=== PATIENT | female | born 1950 | race Caucasian/White ===

== ENCOUNTER 2020-01-03 11:09 | Day surgery (SDC) | payer MEDICARE, SELFPAY ==
[2019-12-28 10:31] VITALS: BMI 28.3
--- NOTE | 2019-12-31 09:43 | HO.ANESPROP2 ---
Documented by User: Saba Redd 12/31/19 09:44 HPI - Anesthesia Eval Consult details Narrative: 69yo F for Colonoscopy PMFSH Past Medical History Medical History Diabetes Elevated cholesterol Hx of spinal stenosis PVD (peripheral vascular disease) Sleep apnea Thyroid disease Surgical History Surgical History H/O colonoscopy Hx of elbow surgery Social History Social History Smoking Status: Current every day smoker Smoked in Last 30 Days: Yes Advance Directives Information Provided: No Meds Allergies Allergy/AdvReac Type Severity Reaction Status Date / Time adhesive tape Allergy Intermediate BLISTERS Verified 01/03/20 06:16 latex [LATEX] Allergy Intermediate REDNESS Verified 01/03/20 06:16 Sulfa (Sulfonamide Allergy Intermediate HIVES Verified 01/03/20 06:16 Antibiotics) [SULFA (SULFONAMIDE ANTIBIOTICS)] amoxicillin [Augmentin] Allergy Unknown Unknown Verified 01/03/20 06:16 clavulanic acid [Augmentin] Allergy Unknown Unknown Verified 01/03/20 06:16 ENVIROMENTAL Allergy Intermediate HAYFEVER Uncoded 11/18/19 16:25 bees Allergy Unknown Unknown Uncoded 12/28/19 10:38 ceclor Allergy Unknown Unknown Uncoded 12/28/19 10:38 Home Medications Medication Instructions Recorded Confirmed Type aspirin [Aspirin Low Dose] 81 mg PO 5XW 12/28/19 01/03/20 History levocetirizine 5 mg PO QPM 12/28/19 12/28/19 History levothyroxine 50 mcg PO 5XW 12/28/19 12/28/19 History levothyroxine 100 mcg PO 2XW 12/28/19 12/28/19 History metformin 1,000 mg PO BID 12/28/19 12/28/19 History multivitamin 1 tab PO DAILY 12/28/19 12/28/19 History omega-3 fatty acids [Fish Oil 1,000 mg PO DAILY 12/28/19 01/03/20 History Concentrate] rosuvastatin 5 mg PO 2XW 12/28/19 12/28/19 History Exam Exam Date and Time: December 31, 2019 0943 Height,Weight and Vital Signs: Height 5 ft 5 in Weight 77.111 kg Assessment and Plan Assessment Anesthesia Assessment: Chart Reviewed Documented by User: Bre Mike 01/03/20 12:18 PMFSH Past Medical History Medical History Diabetes Elevated cholesterol Hx of spinal stenosis PVD (peripheral vascular disease) Sleep apnea Thyroid disease Family History Family history of problems with anesthesia: No Surgical History Surgical History H/O colonoscopy Hx of elbow surgery History of Problems with Anesthesia: No Social History Social History Smoking Status: Current every day smoker Smoked in Last 30 Days: Yes Advance Directives Information Provided: No Meds Allergies Allergy/AdvReac Type Severity Reaction Status Date / Time adhesive tape Allergy Intermediate BLISTERS Verified 01/03/20 06:16 latex [LATEX] Allergy Intermediate REDNESS Verified 01/03/20 06:16 Sulfa (Sulfonamide Allergy Intermediate HIVES Verified 01/03/20 06:16 Antibiotics) [SULFA (SULFONAMIDE ANTIBIOTICS)] amoxicillin [Augmentin] Allergy Unknown Unknown Verified 01/03/20 06:16 clavulanic acid [Augmentin] Allergy Unknown Unknown Verified 01/03/20 06:16 ENVIROMENTAL Allergy Intermediate HAYFEVER Uncoded 11/18/19 16:25 bees Allergy Unknown Unknown Uncoded 12/28/19 10:38 ceclor Allergy Unknown Unknown Uncoded 12/28/19 10:38 Home Medications Medication Instructions Recorded Confirmed Type aspirin [Aspirin Low Dose] 81 mg PO 5XW 12/28/19 01/03/20 History levocetirizine 5 mg PO QPM 12/28/19 12/28/19 History levothyroxine 50 mcg PO 5XW 12/28/19 12/28/19 History levothyroxine 100 mcg PO 2XW 12/28/19 12/28/19 History metformin 1,000 mg PO BID 12/28/19 12/28/19 History multivitamin 1 tab PO DAILY 12/28/19 12/28/19 History omega-3 fatty acids [Fish Oil 1,000 mg PO DAILY 12/28/19 01/03/20 History Concentrate] rosuvastatin 5 mg PO 2XW 12/28/19 12/28/19 History Exam Height,Weight and Vital Signs: Vital Signs Temp Pulse Resp BP Pulse Ox 01/03/20 11:36 98.5 F 98 18 129/70 96 Lab Results 01/03/20 Range/Units 11:31 POC Glucose 149 H (60-115) mg/dL Airway Mallampati Class: II TM Dist: >3cm Neck ROM: Full Heart: RRR Lungs: CTAB Assessment and Plan Assessment Anesthesia Assessment: Anesthesia Plan Discussed and Chart Reviewed Final Anesthetic Review NPO: Yes ASA Class: III Final Preanesthetic Review: No Changes in Pt Med Stat, Meds/Allgs Chart Reviewed and Consent Obtained/Reviewed Patient Risk: Intermediate Procedure Risk: Low Anesthetic Plan Anesthetic Plan: MAC: Disposition: Standard PACU
[2020-01-03 11:36] VITALS: BP 129/70; PULSE 98; RESP 18; TEMP 36.9; O2SAT 96
[2020-01-03 11:41] LABS: Glucose, Whole Blood 149 mg/dL (60-115)
[2020-01-03] MEDS: Lactated Ringers 1,000 ML 100 ML IVCONT (11:55)
[2020-01-03 12:47] VITALS: BP 105/59; PULSE 95; RESP 18; TEMP 35.9; O2SAT 97
--- NOTE | 2020-01-03 12:55 | PM.OP ---
Brief Operative Note Date of procedure: 01/03/20 Pre-op diagnosis: Screening Post-op diagnosis: other (Colon polyp, Diverticulosis) Procedure: Colonoscopy to cecum and TI with snare polypectomy and placement of 1 Resolution clip Surgeon: Arnie Bach Anesthesia: MAC Estimated blood loss (mL): 0 Pathology: other (A. Rectal polyp) Condition: stable Disposition: PACU
[2020-01-03 13:03] VITALS: BP 112/62; PULSE 82; RESP 18; O2SAT 98
[2020-01-03 13:18] VITALS: BP 118/64; PULSE 74; RESP 14; TEMP 36.4; O2SAT 99
--- NOTE | 2020-01-03 13:44 | OP_ITS ---
SURGEON: Arnie Bach MD INDICATIONS: Full consent has been obtained from her for this, including risks of bleeding and perforation. PREOPERATIVE DIAGNOSIS: POSTOPERATIVE DIAGNOSIS: PROCEDURE PERFORMED: Colonoscopy to cecum and terminal ileum with snare polypectomy, and placement of 1 resolution clip. ESTIMATED BLOOD LOSS: COMPLICATIONS: ANESTHESIA: Monitored anesthesia care. ASSISTANTS: SPECIMENS: PREOPERATIVE DIAGNOSES: Colorectal cancer screening and personal history of tubular adenoma of the colon. POSTOPERATIVE DIAGNOSES: Colorectal cancer screening and personal history of tubular adenoma of the colon, colon polyp, diverticulosis and internal hemorrhoids. DESCRIPTION OF PROCEDURE: The patient was placed in the left lateral decubitus position. The digital rectal exam revealed no abnormalities. The Olympus video pediatric colonoscope was entered into the rectum and advanced easily to the cecum. Once in the cecum, I did identify normal-appearing cecal pouch with appendiceal orifice and a normal-appearing ileocecal valve. The terminal ileum was cannulated and appeared normal. The scope was withdrawn back in the colon. The entire cecum and ileocecal valve appeared normal. The scope was then slowly withdrawn assessing all mucosal surfaces carefully. Preparation was excellent. There was a mild amount of sigmoid diverticulosis. I did not visualize any sign of colitis nor angiodysplasia. In the rectum, scope was retroflexed visualizing internal hemorrhoids, but no other pathology. The rectal mucosa appeared normal. The scope was straightened. In the forward viewing position, in the mid to proximal rectum, was an approximately 6 mm grossly adenomatous polyp, which was snared and recovered by suction. The polypectomy site appeared clean, without any sign of residual polyp nor bleeding. I did place a single resolution clip on the polypectomy site due to the fact that she has to go back on her aspirin. There was good deployment of the clip and good hemostasis. The scope was withdrawn from the patient. She tolerated the procedure well and was returned to the recovery area in stable condition. IMPRESSION: 1. Rectal polyp, status post snare polypectomy. 2. Diverticulosis. 3. Internal hemorrhoids. PLAN: The results of the pathology will be checked. I would recommend a repeat colonoscopy in 5 years for further screening. She was advised that she could resume her aspirin by tomorrow. MD DEVORAH Lindo/MARCO / [id number]
--- NOTE | 2020-01-03 14:11 | HO.POSTANES ---
Post Anesthesia Evaluation Post Anesthesia Evaluation Vital Signs: Vital Signs Temp Pulse Resp BP Pulse Ox 01/03/20 13:18 97.5 F 74 14 118/64 99 01/03/20 13:03 82 18 112/62 98 01/03/20 12:47 96.7 F L 95 18 105/59 L 97 01/03/20 11:36 98.5 F 98 18 129/70 96 Anesthesia: Monitored Mental Status: Awake Pain Control: Satisfactory Nausea/Vomiting: None Hydration: Adequate Anesthesia-Related Issues: No Anes. Related Issues
== END 2020-01-03 23:59 | disposition home or self-care (01) ==
PROVIDERS: Internal Medicine; PCP Pediatrics; Visit Provider Internal Medicine Gastroenterology
PROC: 0DJD8ZZ Inspection of Lower Intestinal Tract, Via Natural or Artificial Opening Endoscopic (ICD-10-PCS; CPT 45378; principal; 2020-01-03 12:00)
DX: Z12.11 Encounter for screening for malignant neoplasm of colon (principal); Z86.010 Personal history of colon polyps; D12.8 Benign neoplasm of rectum; K57.30 Diverticulosis of large intestine without perforation or abscess without bleeding; K64.8 Other hemorrhoids; E11.9 Type 2 diabetes mellitus without complications; G47.33 Obstructive sleep apnea (adult) (pediatric); Z99.89 Dependence on other enabling machines and devices; Z79.84 Long term (current) use of oral hypoglycemic drugs; Z79.82 Long term (current) use of aspirin; F17.210 Nicotine dependence, cigarettes, uncomplicated; Z88.2 Allergy status to sulfonamides; Z88.8 Allergy status to other drugs, medicaments and biological substances; Z91.040 Latex allergy status
CPT/HCPCS: 45385; 82947; 88305

== ENCOUNTER 2022-10-21 11:36 | Day surgery (SDC) | payer MEDICARE, SELFPAY ==
--- NOTE | 2022-10-17 12:01 | P.CONAN_ITS ---
Documented by User: Saba Redd NP 10/17/22 12:04 HPI - Anesthesia Eval Consult details Narrative: 72yo F for Upper Endoscopy PMFSH Past Medical History Medical History Adenocarcinoma, lung Diabetes Elevated cholesterol History of kidney stones Hx of skin cancer, basal cell Hx of spinal stenosis PVD (peripheral vascular disease) Sleep apnea Smoker Thyroid disease Family History Family history of problems with anesthesia: No Surgical History Surgical History H/O colonoscopy Hx of bilateral cataract extraction Hx of elbow surgery History of Problems with Anesthesia: No Social History Social History Patient Tobacco Use Status: Current everyday Tobacco user Tobacco use type: Cigarette Cigarettes Per Day: 15 Use of substances other than those prescribed or required for medical reasons: No Are you DNR?: No Advance Directives: No Advance Directives Information Provided: Yes Meds Allergies Allergy/AdvReac Type Severity Reaction Status Date / Time adhesive tape Allergy Intermediate BLISTERS Verified 01/03/20 06:16 latex [LATEX] Allergy Intermediate REDNESS Verified 01/03/20 06:16 Sulfa (Sulfonamide Allergy Intermediate HIVES Verified 01/03/20 06:16 Antibiotics) [SULFA (SULFONAMIDE ANTIBIOTICS)] amoxicillin [Augmentin] Allergy Unknown Unknown Verified 01/03/20 06:16 clavulanic acid [Augmentin] Allergy Unknown Unknown Verified 01/03/20 06:16 ENVIROMENTAL Allergy Intermediate HAYFEVER Uncoded 11/18/19 16:25 bees Allergy Unknown Unknown Uncoded 12/28/19 10:38 ceclor Allergy Unknown Unknown Uncoded 12/28/19 10:38 Home Medications Medication Instructions Recorded Confirmed Last Taken Type aspirin 81 mg tablet,delayed 81 mg PO 5XW 12/28/19 01/03/20 10/14/22 History release (Brittany Low Dose Aspirin) levocetirizine 5 mg tablet 5 mg PO QPM 12/28/19 12/28/19 Unknown History levothyroxine 50 mcg tablet 50 mcg PO 5XW 12/28/19 12/28/19 Unknown History levothyroxine 50 mcg tablet 100 mcg PO 2XW 12/28/19 12/28/19 Unknown History metformin 500 mg tablet 1,000 mg PO BID 12/28/19 12/28/19 Unknown History omega-3 fatty acids 1,000 mg 1,000 mg PO DAILY 12/28/19 01/03/20 10/14/22 History capsule (Fish Oil Concentrate) rosuvastatin 5 mg tablet 5 mg PO 2XW 12/28/19 12/28/19 Unknown History omeprazole 20 mg capsule,delayed 20 mg PO DAILY 10/18/22 10/18/22 Unknown History release cyanocobalamin (vitamin B-12) 500 500 mcg PO DAILY 10/21/22 10/21/22 Unknown History mcg tablet (Vitamin B-12) Exam Exam Date and Time: October 17, 2022 1201 Assessment and Plan Assessment Anesthesia Assessment: Chart Reviewed Final Anesthetic Review Family History of Problems with Anesthesia: No History of Problems with Anesthesia: No Documented by User: Laly Banda MD 10/21/22 13:07 [facility] Past Medical History Medical History Adenocarcinoma, lung Diabetes Elevated cholesterol History of kidney stones Hx of skin cancer, basal cell Hx of spinal stenosis PVD (peripheral vascular disease) Sleep apnea Smoker Thyroid disease Surgical History Surgical History H/O colonoscopy Hx of bilateral cataract extraction Hx of elbow surgery Social History Social History Patient Tobacco Use Status: Current everyday Tobacco user Tobacco use type: Cigarette Cigarettes Per Day: 15 Use of substances other than those prescribed or required for medical reasons: No Are you DNR?: No Advance Directives: No Advance Directives Information Provided: Yes Meds Allergies Allergy/AdvReac Type Severity Reaction Status Date / Time adhesive tape Allergy Intermediate BLISTERS Verified 01/03/20 06:16 latex [LATEX] Allergy Intermediate REDNESS Verified 01/03/20 06:16 Sulfa (Sulfonamide Allergy Intermediate HIVES Verified 01/03/20 06:16 Antibiotics) [SULFA (SULFONAMIDE ANTIBIOTICS)] amoxicillin [Augmentin] Allergy Unknown Unknown Verified 01/03/20 06:16 clavulanic acid [Augmentin] Allergy Unknown Unknown Verified 01/03/20 06:16 ENVIROMENTAL Allergy Intermediate HAYFEVER Uncoded 11/18/19 16:25 bees Allergy Unknown Unknown Uncoded 12/28/19 10:38 ceclor Allergy Unknown Unknown Uncoded 12/28/19 10:38 Home Medications Medication Instructions Recorded Confirmed Last Taken Type aspirin 81 mg tablet,delayed 81 mg PO 5XW 12/28/19 01/03/20 10/14/22 History release (Brittany Low Dose Aspirin) levocetirizine 5 mg tablet 5 mg PO QPM 12/28/19 12/28/19 Unknown History levothyroxine 50 mcg tablet 50 mcg PO 5XW 12/28/19 12/28/19 Unknown History levothyroxine 50 mcg tablet 100 mcg PO 2XW 12/28/19 12/28/19 Unknown History metformin 500 mg tablet 1,000 mg PO BID 12/28/19 12/28/19 Unknown History omega-3 fatty acids 1,000 mg 1,000 mg PO DAILY 12/28/19 01/03/20 10/14/22 History capsule (Fish Oil Concentrate) rosuvastatin 5 mg tablet 5 mg PO 2XW 12/28/19 12/28/19 Unknown History omeprazole 20 mg capsule,delayed 20 mg PO DAILY 10/18/22 10/18/22 Unknown History release cyanocobalamin (vitamin B-12) 500 500 mcg PO DAILY 10/21/22 10/21/22 Unknown History mcg tablet (Vitamin B-12) Exam Airway Mallampati Class: III TM Dist: >3cm Neck ROM: Full Loose/Missing/Broken Teeth: No Heart: RRR Lungs: CTA Assessment and Plan Assessment Anesthesia Assessment: Anesthesia Plan Discussed Final Anesthetic Review NPO: Yes ASA Class: II Final Preanesthetic Review: Meds/Allgs Chart Reviewed, Consent Obtained/Reviewed and Anes Risks/Benef Reviewed Patient Risk: Low Procedure Risk: Intermediate Anesthetic Plan Anesthetic Plan: MAC: Disposition: Standard PACU
[2022-10-21 12:32] VITALS: BMI 27.0
[2022-10-21 12:54] VITALS: BP 131/70; PULSE 84; RESP 16; TEMP 36.1; O2SAT 95
[2022-10-21] MEDS: Lactated Ringers 1,000 ML 100 ML IVCONT (12:56)
[2022-10-21 13:42] LABS: Glucose, Whole Blood 132 mg/dL (60-115)
[2022-10-21 13:45] VITALS: BP 105/80; PULSE 98; RESP 16; TEMP 36.2; O2SAT 94
--- NOTE | 2022-10-21 13:47 | P.BOP_ITS ---
Brief Operative Note Date of Service: 10/21/22 Pre-op diagnosis: Abdominal pain Post-op diagnosis: other (Duodenitis, Minimal gastritis, GERD/Rule out Ott's, Hiatal hernia) Procedure: EGD with biopsies Surgeon: Arnie Bach Anesthesia: MAC Was an [employer] used for this Procedure?: No Estimated blood loss (mL): 2.0 Pathology: other (A. Gastric antrum B. EG Junction at 35cm) Condition: stable Disposition: PACU
[2022-10-21 14:00] VITALS: BP 119/68; PULSE 87; RESP 16; O2SAT 98
[2022-10-21 14:13] VITALS: BP 105/79; PULSE 77; RESP 16; TEMP 36.6; O2SAT 98
--- NOTE | 2022-10-22 01:43 | OP_ITS ---
DATE OF SERVICE: 10/21/2022 SURGEON: Arnie Bach MD INDICATIONS: The patient presents for evaluation of abdominal pain. Full consent was obtained from her for this, including risks of bleeding and perforation. PREOPERATIVE DIAGNOSIS: Abdominal pain. POSTOPERATIVE DIAGNOSIS: PROCEDURE PERFORMED: Esophagogastroduodenoscopy with biopsies. ESTIMATED BLOOD LOSS: COMPLICATIONS: ANESTHESIA: Monitored anesthesia care. ASSISTANTS: SPECIMENS: POSTOPERATIVE DIAGNOSES: Abdominal pain, duodenitis, minimal gastritis, hiatal hernia, gastroesophageal reflux, and rule out Ott's esophagus. DESCRIPTION OF PROCEDURE: The patient was placed in the left lateral decubitus position. The Olympus video gastroscope was passed in the posterior oropharynx and upper esophagus under direct vision. The scope was passed slowly to the distal esophagus. The gastroesophageal junction appeared at 35 cm. Extending from this for less than 1 cm were projections of possible Ott's mucosa, but without any ulceration nor lesions. There was no esophagitis. The scope entered the stomach and there was a small hiatal hernia. The scope was advanced to the pylorus and the duodenum was cannulated to the descending portion. The second and third portions of duodenum appeared normal. The duodenal bulb had evidence of duodenitis with edema, erythema, and some minimal friability. The scope was withdrawn back to the stomach. The gastric antrum and body of the stomach had some minimal areas of erythema, but no erosions or ulceration. There was good peristalsis. Biopsies were obtained from the antrum. The scope was retroflexed visualizing the proximal stomach carefully, which appeared normal without any sign of mass or ulceration. The scope was straightened and withdrawn back to the esophagus. Biopsies were obtained at the esophagogastric junction at 35 cm. Proximal to this, the esophageal mucosa appeared normal. The scope was withdrawn from the patient. She tolerated the procedure well and was returned to the recovery area in stable condition. IMPRESSION: 1. Duodenitis. 2. Minimal gastritis. 3. Hiatal hernia. 4. Gastroesophageal reflux, rule out Ott's esophagus. PLAN: The results of biopsies will be checked. If there is Ott's esophagus without dysplasia, I would recommend a repeat upper endoscopy in 3 years. She was advised to resume her omeprazole and use that daily given today's findings. I do suspect that at least some of the abdominal discomfort would be related to these findings. If Helicobacter pylori happens to be present in the gastric biopsies, we could consider treating that as well. She was advised to avoid nonsteroidal anti-inflammatory drugs long-term. She was advised not to use any aspirin for 1 week, but to try to stay off that long-term if that is okay with her primary care physician. If she is feeling well, she can see me on a p.r.n. basis. She was advised to call as needed. MD DEVORAH Lindo/MARCO / [id number] MTDD
== END 2022-10-21 14:35 | disposition home or self-care (01) ==
PROVIDERS: PCP Pediatrics; Visit Provider Internal Medicine
PROC: 0DJ08ZZ Inspection of Upper Intestinal Tract, Via Natural or Artificial Opening Endoscopic (ICD-10-PCS; CPT 43235; principal; 2022-10-21 12:30)
DX: K29.80 Duodenitis without bleeding (principal); K29.60 Other gastritis without bleeding; K21.9 Gastro-esophageal reflux disease without esophagitis; K44.9 Diaphragmatic hernia without obstruction or gangrene; R10.12 Left upper quadrant pain; E11.9 Type 2 diabetes mellitus without complications; E78.5 Hyperlipidemia, unspecified; F17.210 Nicotine dependence, cigarettes, uncomplicated; G47.30 Sleep apnea, unspecified; Z99.89 Dependence on other enabling machines and devices; Z79.899 Other long term (current) drug therapy
CPT/HCPCS: 43239; 82947; 88305; 88342; J2250